=== PATIENT | female | born 1955 | race Caucasian/White ===

== ENCOUNTER 2024-05-09 06:35 | Emergency (ER) | payer MEDICARE, SELFPAY ==
--- NOTE | ~2024-05-09 | XR_ITS ---
CLINICAL HISTORY: pain base of 5th radiating to lateral malleolu Exam: AP, lateral, and mortise views of the right ankle. Comparison: Right foot radiographs from same time. Findings: Bony alignment of the ankle is anatomic. No acute fracture. Ankle mortise is intact. Tiny plantar calcaneal spur. Impression: No fracture. This document has been electronically signed by: Ben Oleary MD on 05/09/2024 09:20:49
--- NOTE | ~2024-05-09 | XR_ITS ---
CLINICAL HISTORY: pain base of 5th and dorsum x 3 days- cant bear wt Exam: AP, lateral, and oblique views of the right foot. Comparison: Right ankle radiographs from same time. Findings: Bony alignment of the Lisfranc articulation is anatomic. No acute fracture. Specifically, no fracture of the 5th metatarsal. Moderate-sized os peroneus. No erosions. Impression: No fracture. This document has been electronically signed by: Ben Oleary MD on 05/09/2024 09:21:53
[2024-05-09 06:42] VITALS: BP 144/66; PULSE 87; O2SAT 95
[2024-05-09 06:54] VITALS: BP 114/67; PULSE 88; RESP 16; TEMP 36.5; O2SAT 96; BMI 39.1
--- NOTE | 2024-05-09 08:05 | ED_ITS ---
HPI - Extremity Injury (Lower) General Chief Complaint: Extremity Injury, Lower Stated Complaint: SWOLLEN FOOT Time Seen by Provider: 05/09/24 08:05 Source: patient and family Mode of arrival: wheelchair Limitations: other (oxygen dependent) History of Present Illness ED Provider: Danni Khan PA-C HPI Narrative: Patient comes into the emergency department today seeking medical attention for pain in her right foot. Three days ago in the middle of night she got up routinely to go to the bathroom, she stepped out of her bed and doing so she felt pain immediately in the right lateral side of her foot and on the top of it. It is just a dull ache at that time so she can you do go the bathroom even though it is painful. She got up 2 other times in the night which is typical for her at each time it got progressively worse. Over the last 2 days she has had pain with even bearing weight on it. She denies any pain radiating to her toes knee or hip. She has not had any paresthesias or weakness. Other than high school with simple sprain of her ankle on the side no other trauma to it. She has not noticed any skin changes a restless the dull ache just worse with weight-bearing. She denies any associated calf pain and no prior VTE of this limb. At baseline she also has dry skin does use Vaseline every now and then otherwise denies any itching or burning sensation. Patient is accompanied by her son-in-law for whom she lives with. Patient's ADLs include just watching her grandchildren as well as doing dishes but otherwise isn't ambulate much due to her oxygen dependency she is on 2 L denies any change in her respiratory status. No known falls or trauma. Nohx of gout and no fevers. She has not treated anyway other than trying to stay off of the foot. Injury: Right: foot Place: home Related Data Previous Rx's ?Medication ?Instructions ?Recorded diclofenac sodium 1 % topical gel 4 g topical QID swelling of foot 05/09/24 #100 grams walker #1 ea 05/09/24 Allergies Allergy/AdvReac Type Severity Reaction Status Date / Time mobic Allergy Unknown Anaphylaxis Uncoded 05/09/24 06:57 penicillin Allergy Unknown Rash Uncoded 05/09/24 06:57 skelaxin Allergy Unknown Hives Uncoded 05/09/24 06:57 sulfa drugs Allergy Unknown Hives Uncoded 05/09/24 06:57 Review of Systems Review of Systems: Yes all other systems are reviewed and are negative PMFSH Past Medical History Attestation statement: The following information was validated with the patient. Social History Social History Advance Directives: Yes Advance Directives Information Provided: Yes Advance Directives on File: No Physical Exam Vital Signs: Vital Signs: Last Vital Signs Temp 97.7 F 05/09/24 06:54 Pulse 88 05/09/24 06:54 Resp 16 05/09/24 06:54 BP 114/67 05/09/24 06:54 Pulse Ox 96 05/09/24 06:54 O2 Del Method Nasal Cannula 05/09/24 06:54 Oxygen Flow Rate 2 05/09/24 06:54 BMI result Body Mass Index 39.1 General: Appears in no acute distress, appears well nourished body habitus is obese, appears stated age. No septic or ill-appearing. She is on 2 L nasal cannula baseline Vitals reviewed normal, PMH/Social and Surgical hx reviewed including allergies and current medications. - reviewed for prior visits here none pertaining to similar chief complaint. Head: Normocephalic, no obvious trauma or skin lesions noted. Eyes: EOMI Neck: trachea midline Cardiovascular: peripheral perfusion normal, Regular heart rate Respiratory: no respiratory distress Abdomen: nondistended Extremities: warm and moving without difficulty unless otherwise detailed in physical exam if applicable. atrophic skin changes hyperpigmentation of bilateral anterior shins but no bottle necking, right foot appears mildly swollen over the dorsum of the foot when compared to other side where tendons are more visible and palpable without deep pressure, spares the rest of lower extremity dry skin noted diffusely but no cracks in the skin tenderness of the base of the 5th of the right lateral foot, difficulty with bearing weight can bear weight on heel only, no pain with calf squeezing pain with dorsiflexion both active and passive no pain with plantar flexion, compartments are soft cap refill less than 3 seconds. Pulses are 2+ sensation is fully intact DTRs are intact no bony tenderness to the rest of lower extremities, no erythema or pain on proportion, antalgic gait favoring the right lower extremity using wheelchair to transfer, no ambulatory device at home Psych: Cooperative Neuro: Alert and oriented.? Medications Administered Discontinued Medications Generic Name Dose Route Start Last Admin Trade Name Freq PRN Reason Stop Dose Admin Acetaminophen 650 mg 05/09/24 08:22 05/09/24 08:53 Acetaminophen 325 Mg Tablet PO 05/09/24 08:23 650 mg ONCE ONE Administration Medical Decision Making Medical Decision Making [facility] Narrative: Patient presents to ED today for evaluation of right sided foot pain . PURNIMA is likely stepping out of bed inversion planting. Patient is afebrile with stable vitals and well-appearing.? History and physical as stated above.? Patient is neurovascular intact in the affected extremity.? X- rays were obtained to further evaluate.? They show no acute fractures or obvious abnormalities we will update plan if final read differs. ? Patient's symptoms are consistent with a sprain/ tenosynovitis.? Cellulitis and gout considered however no erythema. Wells score for VTE is 0. Patient?s right foot/ankle was placed in an liz wrap. Discussed icing it, elevating and using topical diclofenac sodium and Tylenol for discomfort.? Patient was given an ambulatory DME order for a walker for use outside. Discussed that if there is no significant improvement in the next 1 to 2 weeks to follow-up with an orthopedic clinic, information given. Discussed symptomatic treatment with the patient.? Discussed return precautions.? Patient and son-in-law verbalized understanding of the above plan and is in agreement with the above plan.? The patient was discharged home in stable condition with return precautions. Differential Diagnosis Differential Diagnoses: The differential diagnosis associated with the presentation includes See [facility] Lab Data Labs: Considered labs but given top and lateral foot no in area of deep vein sxs and there is suspicious PURNIMA as above, u/s and labs deferred. Independent Interpretation I performed an independent interpretation of an: Plain X-Ray Interpretation: no obvious fracture or dislocation. Radiology Impression Discussion of test interpretation with radiology: I have reviewed the radiologist's reading. Independent Historian Clinical information obtained from an independent historian. History obtained from or confirmed by: Other son in law Discharge Plan Discharge Clinical Impression: Strain of foot, right, Tenosynovitis of right foot Patient Disposition: Home, Self-Care Instructions: Tenosynovitis (ED), Cold Compress or Soak (ED) Additional Instructions: You have sprained your foot and have some inflammation of the tendon sheath known as tenosynovitis The xrays did not show any acute fracture Please ice for 20 minutes at a time, 3-4x daily, for the next few days Use the LIZ wrap for compression Use the post-op shoe until able to wear regular sneakers without pain. Bring the DME order to local medical supply store to get a ambulating walker to help alleviate pain with ambulation and keep you safe while you need to walk. Take Tylenol needed for pain, do not exceed 3000 mg in 24 hours. Use topical diclofenac antiinflammation medicine to help reduce pain and swelling. Use liz wrap for compression and support. May take if while elevating leg, and do not wear while sleeping. If your pain does not improve over the next 1-2 weeks to the point you are wearing a regular sneaker and walking comfortably please follow-up with an orthopedist. Prescriptions: New diclofenac sodium 1 % gel 4 g topical QID Qty: 100 0RF Rx Instructions: apply to single ankle, foot; for foot includes sole/toes/top of foot (DME) walker [facility] See Rx Instructions .Route Qty: 1 0RF Rx Instructions: As directed Referrals: [facility] [place] [facility] [Provider Group] - 1 week Print Language: Setswana
[2024-05-09] MEDS: Acetaminophen 325 MG TABLET 650 MG PO (08:53)
== END 2024-05-09 10:04 | disposition home or self-care (01) ==
PROVIDERS: Emergency Provider Internal Medicine; PCP Nurse Practitioner Family
DX: S96.911A Strain of unspecified muscle and tendon at ankle and foot level, right foot, initial encounter (principal); M25.571 Pain in right ankle and joints of right foot; M65.971 Unspecified synovitis and tenosynovitis, right ankle and foot; X58.XXXA Exposure to other specified factors, initial encounter; Y93.9 Activity, unspecified; Y92.9 Unspecified place or not applicable; Y99.8 Other external cause status
CPT/HCPCS: 73610; 73630; 99283

== ENCOUNTER → 2024-05-09 08:18 | Outpatient (BNV) | payer MEDICARE, SELFPAY | PROVIDERS: Emergency Provider Internal Medicine; PCP Nurse Practitioner Family; Visit Provider Radiology Diagnostic Radiology | DX: M25.571 Pain in right ankle and joints of right foot (principal) | CPT/HCPCS: 73610; 73630 ==